=== PATIENT | female | born 1965 ===

== ENCOUNTER 2021-02-06 22:44 | Emergency (ER) | payer SELFPAY ==
--- NOTE | ~2021-02-06 | CT_ITS ---
EXAMINATION: CT BRAIN W/O DATE: 02/06/2021 23:27 INDICATION: Head injury TECHNIQUE: Computed tomography (CT) of the head was performed without intravenous contrast. The dose- length product was 605.33 mGy-cm. The mA was adjusted according to patient size. Iterative reconstruc tion technique was employed. COMPARISON: No prior studies for comparison. FINDINGS: Normal brain parenchymal volume for age. Normal gonzalez-white differentiation. No acute intrac ranial hemorrhage, infarction, mass or mass effect. No ventriculomegaly or midline shift. Midline sagittal images demonstrate a normal corpus callosum, c raniovertebral junction and sella turcica. Basilar cisterns are patent. Paranasal sinuses and mastoids are pneumatized. No depressed skull fractures. IMPRESSION: 1. No acute intracranial abnormality. Reviewed, dictated and finalized at location A.
[2021-02-06 22:54] VITALS: BP 120/81; PULSE 107; RESP 16; TEMP 36.2; O2SAT 100
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
== END 2021-02-07 00:08 | disposition left against medical advice (07) ==
PROVIDERS: Emergency Provider Emergency Medicine
DX: S09.90XA Unspecified injury of head, initial encounter (principal)
CPT/HCPCS: 70450; 99199